=== PATIENT | female | born 1965 | race Caucasian/White ===

== ENCOUNTER → 2016-05-12 | Outpatient (CLI) | payer OTHER ==
[~2016-05-12] MED LIST: GADOBUTROL 10 ML VIAL IVP ONE
--- NOTE | 2016-05-12 10:02 | MR ---
MRI of Bilateral Breasts Clinical Indications: Increased personal risk of breast cancer. Gene mutation. High-risk screening. Technique: Precontrast sagittal fat-saturated T2-weighted and Vibrant images of both breasts are obt ained. Subsequently, during intravenous administration of 5 mL Gadavist, multiphasic sagittally acqu ired Vibrant MR images through both breasts are obtained. Data is sent to the independent [employer] orkstation for additional analysis including 3D reconstruction, computer-aided detection (CAD), and c olor-coded phase contrast enhancement evaluation. Findings: Significant background parenchymal enhancement is present within both breasts, somewhat li miting the sensitivity of breast MRI in detection and characterization of breast malignancy. Given this limitation, no areas of masslike or ductal enhancement identified within the breasts bilat erally. There is metallic artifact present within the right breast laterally compatible with prior bi opsy. Lymph nodes: No features of axillary or internal mammary lymphadenopathy. Impression: Negative bilateral breast MRI examination. Extensive background parenchymal enhancement. Benign findings. BI-RADS 2.
== END ==
LOC: FIMAGING 06:54
PROVIDERS: ATTEND Obstetrics & Gynecology
DX: Z12.39 Encounter for other screening for malignant neoplasm of breast (principal); Z15.01 Genetic susceptibility to malignant neoplasm of breast; Z80.3 Family history of malignant neoplasm of breast
CPT/HCPCS: 0159T; 77059; A9585; C8908

== ENCOUNTER → 2016-11-03 | Outpatient (CLI) | payer OTHER | LOC: FIMAGING 15:10 | PROVIDERS: ATTEND Obstetrics & Gynecology | DX: Z12.31 Encounter for screening mammogram for malignant neoplasm of breast (principal) | CPT/HCPCS: G0202 ==

== ENCOUNTER → 2017-06-10 | Outpatient (CLI) | payer OTHER | LOC: FIMAGING 05-28 06:49 | PROVIDERS: ATTEND Obstetrics & Gynecology | DX: Z12.39 Encounter for other screening for malignant neoplasm of breast (principal); Z15.01 Genetic susceptibility to malignant neoplasm of breast; Z80.3 Family history of malignant neoplasm of breast | CPT/HCPCS: 0159T; 77059; A9585; C8908 ==

== ENCOUNTER → 2017-12-03 | Outpatient (CLI) | payer OTHER | LOC: FIMAGING 10:05 | PROVIDERS: ATTEND Internal Medicine | DX: Z12.31 Encounter for screening mammogram for malignant neoplasm of breast (principal); Z80.3 Family history of malignant neoplasm of breast; N63.10 Unspecified lump in the right breast, unspecified quadrant ==